=== PATIENT | female | born 1995 | race Caucasian/White ===

== ENCOUNTER 2020-12-11 00:04 | Emergency (ER) | payer MEDICAID, SELFPAY ==
--- NOTE | 2020-12-11 00:44 | ED_ITS ---
HPI - Nausea/Vomiting/Diarrhea General Chief complaint: Nausea/Vomiting/Diarrhea <Romie Taylor MD - Last Filed: 12/11/20 00:55> Stated complaint: vomiting (has HG)/ 24 wks preg <Romie Taylor MD - Last Filed: 12/11/20 00:55> Time Seen by Provider: 12/11/20 00:44 <Romie Taylor MD - Last Filed: 12/11/20 00:55> Source: patient <Romie Taylor MD - Last Filed: 12/11/20 00:55> Mode of arrival: ambulatory <Romie Taylor MD - Last Filed: 12/11/20 00:55> Limitations: no limitations <Romie Taylor MD - Last Filed: 12/11/20 00:55> History of Present Illness HPI Narrative: Patient is 24 weeks has a history of hyperemisis with prior pregnancies. This is her third . <Romie Taylor MD - Last Filed: 12/11/20 00:55> MD elicited complaint: nausea and vomiting <Romie Taylor MD - Last Filed: 12/11/20 00:55> Onset (ago): day(s) <Romie Taylor MD - Last Filed: 12/11/20 00:55> Severity: moderate <Romie Taylor MD - Last Filed: 12/11/20 00:55> Related Data Home medications: Previous Rx's Medication Instructions Recorded ondansetron 4 mg PO Q6-8H PRN #20 tab 12/11/20 <Romie Taylor MD - Last Filed: 12/11/20 00:55> Allergies/Adverse reactions: Allergies Allergy/AdvReac Type Severity Reaction Status Date / Time No Known Allergies Allergy Unverified 02/07/20 16:12 [No Known Allergies*] <Romie Taylor MD - Last Filed: 12/11/20 00:55> Review of Systems Constitutional: Constitutional: Reports no additional constitutional complaints <Romie Taylor MD - Last Filed: 12/11/20 00:55> Eyes: Eyes: Reports no additional eye complaints <Romie Taylor MD - Last Filed: 12/11/20 00:55> ENT: Denies dizziness <Romie Taylor MD - Last Filed: 12/11/20 00:55> Cardiovascular: Cardiovascular: Reports no additional cardiovascular complaints <Romie Taylor MD - Last Filed: 12/11/20 00:55> Respiratory: Respiratory: Reports as per HPI <Romie Taylor MD - Last Filed: 12/11/20 00:55> Gastrointestinal: Gastrointestinal: Reports no additional gastrointestinal complaints <Romie Taylor MD - Last Filed: 12/11/20 00:55> Genitourinary: Genitourinary: Reports no additional female genitourinary complaints <Romie Taylor MD - Last Filed: 12/11/20 00:55> Musculoskeletal: Musculoskeletal: Reports no additional musculoskeletal complaints <Romie Taylor MD - Last Filed: 12/11/20 00:55> Integumentary/Breasts: Skin/Breast: Denies rash <Romie Taylor MD - Last Filed: 12/11/20 00:55> Neurologic: Reports system reviewed and no additional complaints, except as documented, Denies dizziness and Denies Sensory deficit (Neuro) <Romie Taylor MD - Last Filed: 12/11/20 00:55> Psychiatric: Psychiatric: Denies anxiety <Romie Taylor MD - Last Filed: 12/11/20 00:55> [facility] Social History Social History: Social History Alcohol intake: never Patient Tobacco Use Status: Never used Tobacco Use of substances other than those prescribed or required for medical reasons: No Advance Directives: No Advance Directives Information Provided: Yes Patient : Yes <Romie Taylor MD - Last Filed: 12/11/20 00:55> Physical Exam Vital Signs: Vital Signs: Last Vital Signs Temp 99.0 F 12/11/20 00:45 Pulse 95 12/11/20 00:45 Resp 18 12/11/20 04:00 BP 130/66 12/11/20 00:45 Pulse Ox 98 12/11/20 00:45 Body Mass Index 38.1 <Romie Taylor MD - Last Filed: 12/11/20 00:55> Vital Signs: Last Vital Signs Temp 99.0 F 12/11/20 00:45 Pulse 95 12/11/20 00:45 Resp 18 12/11/20 04:00 BP 130/66 12/11/20 00:45 Pulse Ox 98 12/11/20 00:45 Body Mass Index 38.1 <Ethan Wagner MD - Last Filed: 12/11/20 06:16> Const: Other: patient dry heaving into a bucket <Romie Taylor MD - Last Filed: 12/11/20 00:55> Nutritional Appearance: average body habitus <Romie Taylor MD - Last Filed: 12/11/20 00:55> Orientation/consciousness: oriented to person and patient oriented x3 <Romie Taylor MD - Last Filed: 12/11/20 00:55> Limitations: no limitations <Romie Taylor MD - Last Filed: 12/11/20 00:55> HENMT: Head: Yes normal to inspection <Romie Taylor MD - Last Filed: 12/11/20 00:55> Ears: external ears normal <Romie Taylor MD - Last Filed: 12/11/20 00:55> General nose exam: Normal external nose present <Romie Taylor MD - Last Filed: 12/11/20 00:55> Mouth: Normal oral and palatal mucosa present and oropharynx normal <Romie Taylor MD - Last Filed: 12/11/20 00:55> Throat: Yes posterior oropharynx normal <Romie Taylor MD - Last Filed: 12/11/20 00:55> Eyes: General: appearance normal, both eyes and all related structures <Romie Taylor MD - Last Filed: 12/11/20 00:55> Neck: Other: supple <Romie Taylor MD - Last Filed: 12/11/20 00:55> Neck: Yes normal visual inspection <Romie Taylor MD - Last Filed: 12/11/20 00:55> Chest: Chest palpation & inspection: normal inspection of the chest <Romie Taylor MD - Last Filed: 12/11/20 00:55> Resp: Auscultation: clear to auscultation bilaterally <Romie Taylor MD - Last Filed: 12/11/20 00:55> Cardio: Jugular venous distension: no JVD <Romie Taylor MD - Last Filed: 12/11/20 00:55> Rate: regular rate <Romie Taylor MD - Last Filed: 12/11/20 00:55> Rhythm: regular rhythm <Romie Taylor MD - Last Filed: 12/11/20 00:55> Heart sounds: S1 normal heart sound present and S2 normal heart sound present <Romie Taylor MD - Last Filed: 12/11/20 00:55> GI: Other: gravid abdomen nontender <Romie Taylor MD - Last Filed: 11/21 07/13 00:55> Inspection: Yes normal to inspection <Romie Taylor MD - Last Filed: 12/11/20 00:55> Palpation (GI): Soft to palpation, nontender and No hepatosplenomegaly present <Romie Taylor MD - Last Filed: 12/11/20 00:55> Auscultation: normal bowel sounds <Romie Taylor MD - Last Filed: 12/11/20 00:55> : General: Yes no CVA tenderness <Romie Taylor MD - Last Filed: 12/11/20 00:55> Back/Spine/Pelvis: Back: no CVA tenderness <Romie Taylro MD - Last Filed: 12/11/20 00:55> Skin: General skin exam: no rashes or lesions noted <Romie Taylor MD - Last Filed: 12/11/20 00:55> Neuro: General: oriented to person and patient oriented x3 <Romie Taylor MD - Last Filed: 12/11/20 00:55> Cranial nerves: Yes CN's II-XII intact bilaterally <Romie Taylor MD - Last Filed: 12/11/20 00:55> Motor exam (neuro): 5/5 motor strength present throughout <Romie Taylor MD - Last Filed: 12/11/20 00:55> Sensory Exam: No Sensory deficit (Neuro) <Romie Taylor MD - Last Filed: 12/11/20 00:55> Extrem: General: Yes normal to inspection <Romie Taylor MD - Last Filed: 12/11/20 00:55> Psych: Appearance: grossly normal <Romie Taylor MD - Last Filed: 12/11/20 00:55> Course Reevaluation(s) Reevaluation #1: unofficial bedside ultrasound shows IUP with good FH. <Romie Taylor MD - Last Filed: 12/11/20 00:55> MDM - Nausea/Vomiting/Diarrhea MDM Narrative Medical decision making narrative: Patient received 3 L of IV fluid feeling much better now, received 2 doses of Zofran will discharge patient home <Ethan Wagner MD - Last Filed: 12/11/20 06:16> Lab Data Attestation: I reviewed the patient's lab results. <Ethan Wagner MD - Last Filed: 12/11/20 06:16> Result diagrams: : 12/11/20 01:03 12/11/20 01:03 <Romie Taylor MD - Last Filed: 12/11/20 00:55> Labs: Lab Results 12/11/20 12/11/20 12/11/20 Range/Units 01:03 01:03 05:45 WBC 20.6 H (4.8-10.8) X10*3/uL RBC 4.21 (4.20-5.50) X10*6/uL Hgb 12.5 (12.0-16.0) g/dl Hct 37.9 (37-47) % MCV 90.0 (80-98) fL MCH 29.7 (27.0-33.0) pg MCHC 33.0 (31.0-35.0) g/dl RDW 13.2 (11.0-16.0) % Plt Count 296 (160-400) X10*3/uL MPV 10.5 (9.4-12.3) fL Immature Gran % (Auto) 0.6 H (0.0-0.4) % Neut % (Auto) 88.9 H (45-73) % Lymph % (Auto) 6.9 L (20-40) % [place] % (Auto) 3.4 (2-11) % Eos % (Auto) 0.0 (0-4) % Baso % (Auto) 0.2 (0-2) % Lymph # (Auto) 1.4 (1.2-4.9) X10*3/uL [place] # (Auto) 0.7 (0.1-1.2) X10*3/uL Eos # (Auto) 0.0 (0.0-0.4) X10*3/uL Baso # (Auto) 0.0 (0.0-0.2) X10*3/uL Abs Immat Gran (auto) 0.13 H (0.00-0.03) X10*3/uL Absolute Neuts (auto) 18.3 H (2.0-8.3) X10*3/uL Absolute Nucleated RBC 0.000 (0.0-0.012) X10*3/uL Nucleated RBC % (auto) 0.0 (0.0-0.2) /100WBC Sodium 140 (135-145) mmol/L Potassium 3.2 L (3.3-5.1) mmol/L Chloride 99 (96-108) mmol/L Carbon Dioxide 26 (22-29) mmol/L Anion Gap 18 (12-20) BUN 7 L (9-16) mg/dL Creatinine 0.67 (0.5-1.4) mg/dL Estim Creat Clear Calc 119.9 Estimated GFR > 60 Random Glucose 129 H (60-115) mg/dL Calcium 9.3 (8.4-10.2) mg/dL Beta HCG, Quant 7717 mIU/mL Urine Color DARK YELLOW Urine Appearance HAZY Urine pH 7.0 (5.0-8.0) Ur Specific [place] 1.015 (1.005-1.025) Urine Protein TRACE (NEG-TRACE) MG/DL Urine Glucose (UA) NEG (NEG) MG/DL Urine Ketones >=80 (NEG) MG/DL Urine Blood NEG (NEG) Urine Nitrite NEG (NEG) Ur Leukocyte Esterase NEG (NEG) <Romie Taylor MD - Last Filed: 12/11/20 00:55> Lab Results 12/11/20 12/11/20 12/11/20 Range/Units 01:03 01:03 05:45 WBC 20.6 H (4.8-10.8) X10*3/uL RBC 4.21 (4.20-5.50) X10*6/uL Hgb 12.5 (12.0-16.0) g/dl Hct 37.9 (37-47) % MCV 90.0 (80-98) fL MCH 29.7 (27.0-33.0) pg MCHC 33.0 (31.0-35.0) g/dl RDW 13.2 (11.0-16.0) % Plt Count 296 (160-400) X10*3/uL MPV 10.5 (9.4-12.3) fL Immature Gran % (Auto) 0.6 H (0.0-0.4) % Neut % (Auto) 88.9 H (45-73) % Lymph % (Auto) 6.9 L (20-40) % [place] % (Auto) 3.4 (2-11) % Eos % (Auto) 0.0 (0-4) % Baso % (Auto) 0.2 (0-2) % Lymph # (Auto) 1.4 (1.2-4.9) X10*3/uL [place] # (Auto) 0.7 (0.1-1.2) X10*3/uL Eos # (Auto) 0.0 (0.0-0.4) X10*3/uL Baso # (Auto) 0.0 (0.0-0.2) X10*3/uL Abs Immat Gran (auto) 0.13 H (0.00-0.03) X10*3/uL Absolute Neuts (auto) 18.3 H (2.0-8.3) X10*3/uL Absolute Nucleated RBC 0.000 (0.0-0.012) X10*3/uL Nucleated RBC % (auto) 0.0 (0.0-0.2) /100WBC Sodium 140 (135-145) mmol/L Potassium 3.2 L (3.3-5.1) mmol/L Chloride 99 (96-108) mmol/L Carbon Dioxide 26 (22-29) mmol/L Anion Gap 18 (12-20) BUN 7 L (9-16) mg/dL Creatinine 0.67 (0.5-1.4) mg/dL Estim Creat Clear Calc 119.9 Estimated GFR > 60 Random Glucose 129 H (60-115) mg/dL Calcium 9.3 (8.4-10.2) mg/dL Beta HCG, Quant 7717 mIU/mL Urine Color DARK YELLOW Urine Appearance HAZY Urine pH 7.0 (5.0-8.0) Ur Specific [place] 1.015 (1.005-1.025) Urine Protein TRACE (NEG-TRACE) MG/DL Urine Glucose (UA) NEG (NEG) MG/DL Urine Ketones >=80 (NEG) MG/DL Urine Blood NEG (NEG) Urine Nitrite NEG (NEG) Ur Leukocyte Esterase NEG (NEG) <Ethan Wagner MD - Last Filed: 12/11/20 06:16> Discharge Plan Discharge Clinical Impression: Hyperemesis gravidarum <Romie Taylor MD - Last Filed: 12/11/20 00:55> Patient Disposition: Home, Self-Care <Romie Taylor MD - Last Filed: 12/11/20 00:55> Instructions: Hyperemesis Gravidarum (ED) <Romie Taylor MD - Last Filed: 12/11/20 00:55> Additional Instructions: Drink plenty of fluids Take nausea medication as advised for severe nausea or vomiting <Romie Taylor MD - Last Filed: 12/11/20 00:55> Prescriptions: New ondansetron 4 mg tablet,disintegrating 4 mg PO Q6-8H PRN (Reason: Nausea And Vomiting) Qty: 20 RF: 0 <Romie Taylor MD - Last Filed: 12/11/20 00:55>
[2020-12-11 00:45] VITALS: BP 130/66; PULSE 95; RESP 18; TEMP 37.2; O2SAT 98; BMI 38.1
[2020-12-11 01:07] LABS: MANUAL DIFF FLAG NO
[2020-12-11] MEDS: 0.9 % Sodium Chloride 1,000 ML 999 ML IVCONT ×3 (01:07→04:40)
[2020-12-11] MEDS: ondansetron HCL 4 MG/2 ML VIAL IVPUSH ×2 (01:07→04:40)
[2020-12-11 01:20] LABS: Basophils Percent Auto 0.2 % (0-2); Hematocrit 37.9 % (37-47); Hemoglobin 12.5 g/dl (12.0-16.0); Imm Gran Abs Auto 0.13 X10*3/uL (0.00-0.03); Imm Gran Pct Auto 0.6 % (0.0-0.4); Lymphocytes Absolute Auto 1.4 X10*3/uL (1.2-4.9); Lymphocytes Percent Auto 6.9 % (20-40); Mean Corpuscular Hemoglobin 29.7 pg (27.0-33.0); Mean Platelet Volume 10.5 fL (9.4-12.3); Monocytes Absolute Auto 0.7 X10*3/uL (0.1-1.2); Monocytes Percent Auto 3.4 % (2-11); Neutrophils Absolute Auto 18.3 X10*3/uL (2.0-8.3); Neutrophils Percent Auto 88.9 % (45-73); Platelet Count 296 X10*3/uL (160-400); Red Blood Count 4.21 X10*6/uL (4.20-5.50); Red Cell Distribution Width 13.2 % (11.0-16.0); White Blood Count 20.6 X10*3/uL (4.8-10.8)
[2020-12-11 01:23] VITALS: RESP 18
[2020-12-11 01:35] LABS: Anion Gap 18 (12-20); Blood Urea Nitrogen 7 mg/dL (9-16); Calcium 9.3 mg/dL (8.4-10.2); Carbon Dioxide 26 mmol/L (22-29); Chloride 99 mmol/L (96-108); Creatinine Clr Calc Pharmacy 119.9; Estimated Glomerular Filt Rate > 60; Glucose Random 129 mg/dL (60-115); Potassium 3.2 mmol/L (3.3-5.1); Sodium 140 mmol/L (135-145)
[2020-12-11 01:42] LABS: HCG Quantitative 7717 mIU/mL
[2020-12-11 04:00] VITALS: RESP 18
[2020-12-11 05:50] LABS: Glucose Urine UA NEG (NEG); Leukocyte Esterase Urine NEG (NEG); Nitrite Urine NEG (NEG); Specific Gravity - Urine 1.015 (1.005-1.025); Urine Blood NEG (NEG); Urine Ketones >=80 MG/DL (NEG); Urine Protein TRACE MG/DL (NEG-TRACE)
[2020-12-11 05:51] LABS: Appearance Urine HAZY; Color Urine DARK YELLOW; UACC Culture Trigger NO
== END 2020-12-11 06:32 | disposition home or self-care (01) ==
PROVIDERS: Emergency Provider Emergency Medicine
DX: O21.0 Mild hyperemesis gravidarum (principal); Z3A.24 24 weeks gestation of pregnancy
CPT/HCPCS: 36415; 80048; 81003; 84702; 85025; 96361; 96374; 96376; 99284; J2405

== ENCOUNTER 2020-12-21 00:30 | Emergency (ER) | payer MEDICAID, SELFPAY ==
[2020-12-21 00:33] VITALS: BP 139/78; PULSE 106; RESP 16; O2SAT 99; BMI 38.3
[2020-12-21] MEDS: 0.9 % Sodium Chloride 1,000 ML 999 ML IV ×2 (00:59→01:37)
[2020-12-21 01:06] LABS: Basophils Percent Auto 0.2 % (0-2); Eosinophils Percent Auto 0.2 % (0-4); Hematocrit 36.7 % (37-47); Hemoglobin 12.1 g/dl (12.0-16.0); Imm Gran Abs Auto 0.06 X10*3/uL (0.00-0.03); Imm Gran Pct Auto 0.3 % (0.0-0.4); Lymphocytes Absolute Auto 1.7 X10*3/uL (1.2-4.9); Lymphocytes Percent Auto 9.4 % (20-40); MANUAL DIFF FLAG NO; Mean Corpuscular Hemoglobin 29.5 pg (27.0-33.0); Mean Corpuscular Volume 89.5 fL (80-98); Mean Platelet Volume 10.7 fL (9.4-12.3); Monocytes Absolute Auto 0.7 X10*3/uL (0.1-1.2); Monocytes Percent Auto 4.2 % (2-11); Neutrophils Absolute Auto 15.3 X10*3/uL (2.0-8.3); Neutrophils Percent Auto 85.7 % (45-73); Platelet Count 277 X10*3/uL (160-400); White Blood Count 17.8 X10*3/uL (4.8-10.8)
[2020-12-21 01:10] VITALS: BP 133/72; PULSE 90; RESP 22; O2SAT 100
--- NOTE | 2020-12-21 01:17 | ED_ITS ---
HPI - General Adult General Chief complaint: Nausea/Vomiting/Diarrhea Stated complaint: vomiting blood/ 25 wks preg Time Seen by Provider: 12/21/20 01:14 Source: patient Mode of arrival: ambulatory Limitations: no limitations History of Present Illness HPI narrative: 25-year-old female who presents emergency department for evaluation of nausea vomiting and hematemesis. The patient is AG 3 P 2, LMP 06/25/2020, EDC 04/01/2021 who is approximately 25 weeks by dates. The patient states she began vomiting yesterday morning at 3:00 a.m. has been vomiting all day. She states that she has not been able to eat or drink. She has also been vomiting blood. She states that blood is bright red describes the amount as moderate to large. She has not noted any blood clots in her emesis. She denies weakness, lightheadedness or dizziness. The patient was seen in the emergency department on 12/11/2020 with similar complaints. She was treated with 3 L of normal saline and Zofran. She was given a prescription for Zofran ODT but she states she never picked up this medication. Patient told me that she has not had any follow-up with OBGYN since finding out she was . She states that she was taking vitamins but stopped when she developed nausea and vomiting. She denied fever, chills, headache, abdominal pain, swelling or pain in her lower extremities. Related Data Previous Rx's Medication Instructions Recorded ondansetron 4 mg disintegrating 4 mg PO Q6-8H PRN #20 tab 12/11/20 tablet cimetidine 800 mg tablet 800 mg PO BID #60 tab 12/21/20 promethazine 25 mg rectal 25 mg SC Q6H PRN #24 supp 12/21/20 suppository Allergies Allergy/AdvReac Type Severity Reaction Status Date / Time metoclopramide [From Reglan] Allergy Anxiety Verified 12/21/20 00:33 Review of Systems Review of Systems: Yes all other systems are reviewed and are negative Neurologic: Reports Abnormal speech present [facility] Past Medical History Medical History (Updated 12/21/20 @ 03:03 by Pierre Morrissey MD) No known health problems Social History Social History Alcohol intake: former Patient Tobacco Use Status: Never used Tobacco Use of substances other than those prescribed or required for medical reasons: No Advance Directives: No Advance Directives Information Provided: No Patient : Yes Physical Exam Vital Signs: Vital Signs: Last Vital Signs Pulse 90 12/21/20 01:10 Resp 22 H 12/21/20 01:10 BP 133/72 12/21/20 01:10 Pulse Ox 100 12/21/20 01:10 Body Mass Index 38.3 Const: General: cooperative and healthy appearing Orientation/consciousnes s: oriented to person and oriented to place Limitations: no limitations HENMT: Head: Yes normal to inspection, Yes normocephalic and Yes atraumatic Ears: external ears normal General nose exam: Normal external nose present Face and sinus: Yes normal facial exam Mouth: Normal oral and palatal mucosa present Throat: Yes posterior oropharynx normal Eyes: Periorbital: periorbital findings normal Eyelids: Yes eyelids normal Conjunctivae: conjunctivae normal Sclerae: sclerae normal Corneas: corneas normal Pupils: Equal, round and reactive pupils present Direct Ophthalmoscopy: normal light reflex Neck: Neck: Yes full ROM, Yes no lymphadenopathy, Yes no meningeal signs, Yes trachea midline and Yes supple Chest: Chest palpation & inspection: normal inspection of the chest and normal palpation of entire chest wall Resp: Effort & Inspection: normal respiratory effort and able to speak in comp lete sentences Auscultation: clear to auscultation bilaterally Cardio: Rate: regular rate Rhythm: regular rhythm Heart sounds: S1 normal heart sound present, S2 normal heart sound present and no murmurs GI: Inspection: Yes normal to inspection Palpation (GI): Soft to palpation, nontender, no guarding, not rigid and Other GI palpation findings present (Gravid uterus) : General: Yes no CVA tenderness Back/Spine/Pelvis: Back: no CVA tenderness Cervical Spine: normal cervical lordosis Thoracic/Lumbar Spine: thoracic and lumbar spine normal to inspection Skin: Lesions: no lesions Rashes: no rashes Wounds: no wounds Neuro: General: oriented to person, oriented to place and no meningeal signs Cranial nerves: Yes CN's II-XII intact bilaterally and Yes Equal, round and reactive pupils present Speech: Abnormal speech present Motor exam (neuro): 5/5 motor strength present throughout Extrem: General: Yes normal to inspection and Yes full ROM Psych: Appearance: well kempt Mental Status: mental status grossly normal Speech and movement: Normal speech and movement present Affect: normal affect Attitude: cooperative Thought process: Normal thought process present Thought content: Normal thought content present Course Course Course Narrative: 25-year-old female G3, P2, 25 weeks who presents emergency department for evaluation of nausea, vomiting and hematemesis for approximately 22 hours. The patient denied headache, chest pain, abdominal pain. On initial presentation she was actively vomiting and given Zofran 4 mg IV with improvement of her symptoms. Laboratory evaluation was ordered patient was also ordered to get normal saline IV x2 L. 0254: The patient's laboratory evaluation did [place] [address], she has a elevation previously and this is most likely related to her emesis is not infectious process. The patient's H&H was normal at 12.1 and 36.7, unchanged from previous visit. Her hematemesis is most likely caused by a Dennise-Ferrari tear secondary to her retching. Her comprehensive metabolic panel revealed a slight elevation in glucose of 131 otherwise was unremarkable. Patient's lipase is elevated at 541 but this is that this is secondary to her vomiting and not caused by pancreatitis. Patient's urinalysis revealed ketones and trace protein, otherwise was unremarkable. Patient is feeling significantly better after receiving IV Zofran. Patient also received 2 L of normal saline IV. 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 I also prescribed Phenergan suppositories 25 mg, 1 per rectum every 8 hours as needed for nausea and vomiting in the event that the Zofran does not work for her nausea and vomiting. She also be started on cimetidine for GERD. She states that she is going to get care at [facility] and told her that she needs to contact the [facility] [place] on Tuesday and try to get in as soon as possible. Medical Decision Making Lab Data Result diagrams: 12/21/20 00:58 12/21/20 00:58 Labs: Lab Results 12/21/20 12/21/20 12/21/20 Range/Units 00:58 00:58 00:58 WBC 17.8 H (4.8-10.8) X10*3/uL RBC 4.10 L (4.20-5.50) X10*6/uL Hgb 12.1 (12.0-16.0) g/dl Hct 36.7 L (37-47) % MCV 89.5 (80-98) fL MCH 29.5 (27.0-33.0) pg MCHC 33.0 (31.0-35.0) g/dl RDW 13.0 (11.0-16.0) % Plt Count 277 (160-400) X10*3/uL MPV 10.7 (9.4-12.3) fL Immature Gran % (Auto) 0.3 (0.0-0.4) % Neut % (Auto) 85.7 H (45-73) % Lymph % (Auto) 9.4 L (20-40) % [place] % (Auto) 4.2 (2-11) % Eos % (Auto) 0.2 (0-4) % Baso % (Auto) 0.2 (0-2) % Lymph # (Auto) 1.7 (1.2-4.9) X10*3/uL [place] # (Auto) 0.7 (0.1-1.2) X10*3/uL Eos # (Auto) 0.0 (0.0-0.4) X10*3/uL Baso # (Auto) 0.0 (0.0-0.2) X10*3/uL Abs Immat Gran (auto) 0.06 H (0.00-0.03) X10*3/uL Absolute Neuts (auto) 15.3 H (2.0-8.3) X10*3/uL Absolute Nucleated RBC 0.000 (0.0-0.012) X10*3/uL Nucleated RBC % (auto) 0.0 (0.0-0.2) /100WBC Sodium 140 (135-145) mmol/L Potassium 3.7 (3.3-5.1) mmol/L Chloride 104 (96-108) mmol/L Carbon Dioxide 24 (22-29) mmol/L Anion Gap 16 (12-20) BUN 6 L (9-16) mg/dL Creatinine 0.67 (0.5-1.4) mg/dL Estim Creat Clear Calc 120.2 Estimated GFR > 60 Random Glucose 131 H (60-115) mg/dL Calcium 9.4 (8.4-10.2) mg/dL Total Bilirubin 0.8 (0.0-1.0) mg/dL Direct Bilirubin 0.3 (0.0-0.5) mg/dL AST 10 (5-31) U/L ALT 9 (0-31) U/L Alkaline Phosphatase 88 (39-117) U/L Total Protein 7.1 (6.5-8.0) g/dL Albumin 3.7 (3.5-5.0) g/dL Lipase 541 H (8-78) U/L Beta HCG, Quant 6760 mIU/mL COVID-19 ([facility]) Negative (Negative) COVID-19 Clin Com See Note Discharge Plan Discharge Clinical Impression: Hyperemesis arising during , GERD (gastroesophageal reflux disease), Hematemesis Patient Disposition: Home, Self-Care Instructions: Hyperemesis Gravidarum (ED) Additional Instructions: Your blood work was unremarkable. The blood in your vomit is most likely caused by a small tear in your esophagus from retching. Get the prescription for Zofran ODT filled and take it as prescribed. I am also prescribing Phenergan suppositories 25 mg, 1 per rectum every 6-8 hours as needed for nausea and vomiting. Take cimetidine 800 mg twice a day for 1 month. Follow-up with [facility] for care. You need to call them on Tuesday morning and get in as soon as possible. Please return to the emergency department if your symptoms get worse or if you d evelop any symptoms that are concerning to you. Prescriptions: New cimetidine 800 mg tablet 800 mg PO BID Qty: 60 RF: 0 promethazine 25 mg suppository 25 mg SC Q6H PRN (Reason: nausea and vomiting) Qty: 24 RF: 0 No Action ondansetron 4 mg tablet,disintegrating 4 mg PO Q6-8H PRN (Reason: Nausea And Vomiting) Qty: 20 RF: 0
[2020-12-21 01:22] LABS: COVID-19 Test Negative (Negative); IDNOW Serial# 9DD0AD1C
[2020-12-21 01:34] LABS: Alanine Aminotransferase 9 U/L (0-31); Albumin Level 3.7 g/dL (3.5-5.0); Alkaline Phosphatase 88 U/L (39-117); Anion Gap 16 (12-20); Aspartate Amino Transferase 10 U/L (5-31); Bilirubin Direct 0.3 mg/dL (0.0-0.5); Bilirubin Total 0.8 mg/dL (0.0-1.0); Blood Urea Nitrogen 6 mg/dL (9-16); Calcium 9.4 mg/dL (8.4-10.2); Carbon Dioxide 24 mmol/L (22-29); Chloride 104 mmol/L (96-108); Creatinine Clr Calc Pharmacy 120.2; Estimated Glomerular Filt Rate > 60; Glucose Random 131 mg/dL (60-115); Lipase 541 U/L (8-78); Potassium 3.7 mmol/L (3.3-5.1); Sodium 140 mmol/L (135-145); Total Protein 7.1 g/dL (6.5-8.0)
--- NOTE | 2020-12-21 01:37 | PC.NURSE ---
pt reports improvement in n/v s/p zofran
[2020-12-21 02:39] LABS: HCG Quantitative 6760 mIU/mL
[2020-12-21 02:56] VITALS: BP 109/55; PULSE 95; RESP 16; O2SAT 97
--- NOTE | 2020-12-21 02:57 | PC.NURSE ---
2nd liter continues to infuse. Pt reports mild nausea at this time I don't think it's to the point where I'm going to throw up. Dr Morrissey made aware
== END 2020-12-21 04:24 | disposition home or self-care (01) ==
PROVIDERS: Emergency Provider Emergency Medicine Emergency Medical Services
DX: O21.0 Mild hyperemesis gravidarum (principal); Z3A.25 25 weeks gestation of pregnancy; Z20.822 Contact with and (suspected) exposure to COVID-19
CPT/HCPCS: 36415; 80048; 80076; 83690; 84702; 85025; 87635; 96361; 96365; 96375; 99285; J2405; J2550

== ENCOUNTER 2020-12-31 13:27 | Emergency (ER) | payer MEDICAID, SELFPAY ==
[2020-12-31 13:47] VITALS: BP 108/70; PULSE 111; RESP 16; TEMP 37.2; O2SAT 96; BMI 38.3
[2020-12-31 14:32] LABS: MANUAL DIFF FLAG NO
[2020-12-31 14:35] LABS: Basophils Percent Auto 0.2 % (0-2); Eosinophils Percent Auto 0.1 % (0-4); Hematocrit 37.2 % (37-47); Imm Gran Pct Auto 0.5 % (0.0-0.4); Lymphocytes Absolute Auto 1.3 X10*3/uL (1.2-4.9); Lymphocytes Percent Auto 6.7 % (20-40); Mean Corpuscular HGB Conc 32.3 g/dl (31.0-35.0); Mean Corpuscular Hemoglobin 29.3 pg (27.0-33.0); Mean Corpuscular Volume 90.7 fL (80-98); Mean Platelet Volume 10.3 fL (9.4-12.3); Monocytes Absolute Auto 0.6 X10*3/uL (0.1-1.2); Monocytes Percent Auto 3.2 % (2-11); Neutrophils Absolute Auto 17.7 X10*3/uL (2.0-8.3); Neutrophils Percent Auto 89.3 % (45-73); Platelet Count 254 X10*3/uL (160-400); White Blood Count 19.8 X10*3/uL (4.8-10.8)
[2020-12-31 15:04] LABS: Anion Gap 13 (12-20); Blood Urea Nitrogen 7 mg/dL (9-16); Carbon Dioxide 24 mmol/L (22-29); Chloride 106 mmol/L (96-108); Creatinine Clr Calc Pharmacy 122.1; Estimated Glomerular Filt Rate > 60; Glucose Random 86 mg/dL (60-115); Potassium 4.2 mmol/L (3.3-5.1); Sodium 139 mmol/L (135-145)
--- NOTE | 2020-12-31 17:24 | ED.NAVMDI ---
HPI - Nausea/Vomiting/Diarrhea General Chief complaint: Nausea/Vomiting/Diarrhea Stated complaint: vomiting blood Time Seen by Provider: 12/31/20 17:24 Source: patient Mode of arrival: ambulatory Limitations: no limitations History of Present Illness HPI Narrative: patient started with nausea and vomiting at 2am. Was still vomiting at 12:30pm. Patient noticed some brown vomiting and was concerned that she was vomiting blood. In the past she has had some minor esophageal mucosal tears. patient is currently 27 weeks . Patient says [employer] works for her. MD elicited complaint: nausea, vomiting and diarrhea Pertinent past history: cyclical vomiting Description of vomiting: watery and blood-streaked Associated nausea: Yes Associated abdominal pain: Yes Associated symptoms: denies other symptoms Related Data Previous Rx's Medication Instructions Recorded ondansetron 4 mg disintegrating 4 mg PO Q6-8H PRN #20 tab 12/11/20 tablet cimetidine 800 mg tablet 800 mg PO BID #60 tab 12/21/20 promethazine 25 mg rectal 25 mg MA Q6H PRN #24 supp 12/21/20 suppository promethazine 25 mg tablet 25 mg PO TID PRN #20 tab 12/31/20 Allergies Allergy/AdvReac Type Severity Reaction Status Date / Time metoclopramide [From Reglan] Allergy Anxiety Verified 12/21/20 00:33 Review of Systems Constitutional: Constitutional: Reports no additional constitutional complaints Eyes: Eyes: Reports no additional eye complaints ENT: Denies dizziness Cardiovascular: Cardiovascular: Reports no additional cardiovascular complaints Respiratory: Respiratory: Reports as per HPI Gastrointestinal: Gastrointestinal: Reports nausea Genitourinary: Genitourinary: Reports no additional female genitourinary complaints Musculoskeletal: Musculoskeletal: Reports no additional musculoskeletal complaints Integumentary/Breasts: Skin/Breast: Denies rash Neurologic: Reports system reviewed and no additional complaints, except as documented, Denies dizziness and Denies Sensory deficit (Neuro) Psychiatric: Psychiatric: Denies anxiety PMFSH Past Medical History Medical History No known health problems Social History Social History Alcohol intake: never Patient Tobacco Use Status: Never used Tobacco Use of substances other than those prescribed or required for medical reasons: No Advance Directives: Yes Advance Directives Information Provided: Yes Advance Directives on File: No Patient : Yes Physical Exam Vital Signs: Vital Signs: Last Vital Signs Temp 99.3 F 12/31/20 20:00 Pulse 94 12/31/20 20:00 Resp 16 12/31/20 20:00 BP 141/69 H 12/31/20 20:00 Pulse Ox 99 12/31/20 20:00 Body Mass Index 38.3 Const: Other: comfortable appearing Nutritional Appearance: overweight Orientation/consciousness: oriented to person and patient oriented x3 Limitations: no limitations HENMT: Head: Yes normal to inspection Ears: external ears normal General nose exam: Normal external nose present Mouth: Normal oral and palatal mucosa present and oropharynx normal Throat: Yes posterior oropharynx normal Eyes: General: appearance normal, both eyes and all related structures Neck: Other: supple Neck: Yes normal visual inspection Chest: Chest palpation & inspection: normal inspection of the chest Resp: Auscultation: clear to auscultation bilaterally Cardio: Jugular venous distension: no JVD Rate: regular rate Rhythm: regular rhythm Heart sounds: S1 normal heart sound present and S2 normal heart sound present GI: Other: Gravid abdomen,non tender Inspection: Yes normal to inspection Auscultation: normal bowel sounds : General: Yes no CVA tenderness Back/Spine/Pelvis: Back: no CVA tenderness Skin: General skin exam: no rashes or lesions noted Neuro: General: oriented to person and patient oriented x3 Cranial nerves: Yes CN's II-XII intact bilaterally Motor exam (neuro): 5/5 motor strength present throughout Sensory Exam: No Sensory deficit (Neuro) Extrem: General: Yes normal to inspection Psych: Appearance: grossly normal Course Reevaluation(s) Reevaluation #1: patient just vomited will start IV fluids and IV phenergan Time: 18:32 Reevaluation #2: no further vomiting will dc home Time: 20:45 MDM - Nausea/Vomiting/Diarrhea Lab Data Result diagrams: 12/31/20 14:28 12/31/20 14:28 Labs: Lab Results 12/31/20 12/31/20 12/31/20 Range/Units 14:28 14:28 18:11 WBC 19.8 H (4.8-10.8) X10*3/uL RBC 4.10 L (4.20-5.50) X10*6/uL Hgb 12.0 (12.0-16.0) g/dl Hct 37.2 (37-47) % MCV 90.7 (80-98) fL MCH 29.3 (27.0-33.0) pg MCHC 32.3 (31.0-35.0) g/dl RDW 13.0 (11.0-16.0) % Plt Count 254 (160-400) X10*3/uL MPV 10.3 (9.4-12.3) fL Immature Gran % (Auto) 0.5 H (0.0-0.4) % Neut % (Auto) 89.3 H (45-73) % Lymph % (Auto) 6.7 L (20-40) % [place] % (Auto) 3.2 (2-11) % Eos % (Auto) 0.1 (0-4) % Baso % (Auto) 0.2 (0-2) % Lymph # (Auto) 1.3 (1.2-4.9) X10*3/uL [place] # (Auto) 0.6 (0.1-1.2) X10*3/uL Eos # (Auto) 0.0 (0.0-0.4) X10*3/uL Baso # (Auto) 0.0 (0.0-0.2) X10*3/uL Abs Immat Gran (auto) 0.10 H (0.00-0.03) X10*3/uL Absolute Neuts (auto) 17.7 H (2.0-8.3) X10*3/uL Absolute Nucleated RBC 0.000 (0.0-0.012) X10*3/uL Nucleated RBC % (auto) 0.0 (0.0-0.2) /100WBC Sodium 139 (135-145) mmol/L Potassium 4.2 (3.3-5.1) mmol/L Chloride 106 (96-108) mmol/L Carbon Dioxide 24 (22-29) mmol/L Anion Gap 13 (12-20) BUN 7 L (9-16) mg/dL Creatinine 0.66 (0.5-1.4) mg/dL Estim Creat Clear Calc 122.1 Estimated GFR > 60 Random Glucose 86 (60-115) mg/dL Calcium 9.0 (8.4-10.2) mg/dL Urine Color YELLOW Urine Appearance HAZY Urine pH 6.5 (5.0-8.0) Ur Specific [place] 1.025 (1.005-1.025) Urine Protein 1+ H (NEG-TRACE) MG/DL Urine Glucose (UA) NEG (NEG) MG/DL Urine Ketones >=80 (NEG) MG/DL Urine Blood NEG (NEG) Urine Nitrite NEG (NEG) Ur Leukocyte Esterase NEG (NEG) Urine RBC 0 (0) /HPF Urine WBC 0 (0-4) /HPF Ur Squamous Epith Cells 2+ /LPF Urine Bacteria 1+ /LPF Discharge Plan Discharge Clinical Impression: Hyperemesis Patient Disposition: Home, Self-Care Instructions: Acute Nausea and Vomiting (ED) Prescriptions: New promethazine 25 mg tablet 25 mg PO TID PRN (Reason: nausea and vomiting) Qty: 20 RF: 0 No Action ondansetron 4 mg tablet,disintegrating 4 mg PO Q6-8H PRN (Reason: Nausea And Vomiting) Qty: 20 RF: 0 cimetidine 800 mg tablet 800 mg PO BID Qty: 60 RF: 0 promethazine 25 mg suppository 25 mg MA Q6H PRN (Reason: nausea and vomiting) Qty: 24 RF: 0 Referrals: Joe Milan MD [Physician] - 1 week
[2020-12-31] MEDS: Promethazine HCL 25 MG TABLET PO (18:08)
[2020-12-31 18:28] LABS: Glucose Urine UA NEG (NEG); Leukocyte Esterase Urine NEG (NEG); Nitrite Urine NEG (NEG); PH 6.5 (5.0-8.0); Specific Gravity - Urine 1.025 (1.005-1.025); UACC Culture Trigger NO; Urine Blood NEG (NEG); Urine Ketones >=80 MG/DL (NEG); Urine Protein 1+ MG/DL (NEG-TRACE)
[2020-12-31 18:30] LABS: Appearance Urine HAZY; Color Urine YELLOW
[2020-12-31] MEDS: 0.9 % Sodium Chloride 1,000 ML 999 ML IVCONT ×2 (18:45→20:10)
[2020-12-31 18:52] VITALS: RESP 18
[2020-12-31 19:00] LABS: RBC Urine 0 /HPF (0); WBC Urine 0 /HPF (0-4)
[2020-12-31 19:01] LABS: Bacteria Urine 1+ /LPF; Squamous Epithelial Cell Urine 2+ /LPF
[2020-12-31 20:00] VITALS: BP 141/69; PULSE 94; RESP 16; TEMP 37.4; O2SAT 99
--- NOTE | 2020-12-31 21:42 | PC.NURSE ---
PT REPORTS TEMPORARY MARKED IMPROVEMENT IN SX, WHEN THIS RN WENT TO D/C PT SHE REQUESTED WAITING A LITTLE LONGER SHE FELT SX WERE RETURNING, PT NOW VOMITING MULTIPLE TIMES, PROVIDER AWARE.
[2020-12-31] MEDS: ondansetron HCL 4 MG/2 ML VIAL IVPUSH (21:48)
[2020-12-31 22:00] VITALS: BP 139/82; PULSE 84; RESP 16; TEMP 36.3; O2SAT 99
== END 2020-12-31 23:45 | disposition home or self-care (01) ==
PROVIDERS: Emergency Provider Emergency Medicine
DX: R11.2 Nausea with vomiting, unspecified (principal); Z79.899 Other long term (current) drug therapy
CPT/HCPCS: 36415; 80048; 81001; 85025; 96361; 96374; 96375; 99284; J2405; J2550

== ENCOUNTER 2021-01-06 10:17 | Emergency (ER) | payer MEDICAID, SELFPAY ==
--- NOTE | ~2021-01-06 | US_ITS ---
EXAMINATION: US ABDOMEN COMPLETE CLINICAL INFORMATION: , pain and vomiting. COMPARISON: Abdominal ultrasound examinations dated 04/06/2013 and 05/18/2013. TECHNIQUE: Real-time imaging of the abdominal viscera. FINDINGS: PANCREAS: Normal. ABDOMINAL AORTA: The proximal, mid, and distal segments are normal in caliber. INFERIOR VENA CAVA: Visualized portions are normal. LIVER: Normal. The liver is normal in size. The liver contour is normal. Parenchymal echogenicity is normal. No focal hepatic lesion. There is no intrahepatic biliary duct dilatation seen. GALLBLADDER: There are extensive shadowing, without polyps, sludge, wall thickening or pericholecystic fluid. COMMON BILE DUCT: Normal in caliber measuring 0.4 cm in diameter. RIGHT KIDNEY: Normal. No hydronephrosis. No renal calculi or focal parenchymal lesions. The kidney measures 10.7 cm in maximum dimension. LEFT KIDNEY: Normal. No hydronephrosis. No renal calculi or focal parenchymal lesions. The kidney measures 10.6 cm in maximum dimension. SPLEEN: Normal. The spleen measures 9.4 cm in maximum dimension. FREE FLUID: None. US/US abdomen complete IMPRESSION: There is marked cholelithiasis, without cholecystitis or choledocholithiasis seen.
[2021-01-06 10:55] VITALS: BP 131/76; PULSE 98; O2SAT 97; BMI 37.7
--- NOTE | 2021-01-06 11:17 | ED_ITS ---
HPI - Nausea/Vomiting/Diarrhea General Chief complaint: Nausea/Vomiting/Diarrhea Stated complaint: nausea vomiting Time Seen by Provider: 01/06/21 11:16 Source: patient Mode of arrival: ambulatory Limitations: no limitations History of Present Illness HPI Narrative: Patient here for vomiting. Patient has not had any care no ultrasound for this . This is worse than her second . No spotting. MD elicited complaint: nausea and vomiting Pertinent past history: cyclical vomiting Onset (ago): month(s) Description of vomiting: watery Associated nausea: Yes Location of pain: diffuse Severity: mild Quality: aching Exacerbating factors: eating Relieving factors: none Related Data Previous Rx's Medication Instructions Recorded ondansetron 4 mg disintegrating 4 mg PO Q6-8H PRN #20 tab 12/11/20 tablet cimetidine 800 mg tablet 800 mg PO BID #60 tab 12/21/20 promethazine 25 mg rectal 25 mg AL Q6H PRN #24 supp 12/21/20 suppository promethazine 25 mg tablet 25 mg PO TID PRN #20 tab 12/31/20 ondansetron HCl 4 mg tablet 4 mg PO Q8H PRN #30 tab 01/06/21 (Zofran) Allergies Allergy/AdvReac Type Severity Reaction Status Date / Time metoclopramide [From Reglan] Allergy Anxiety Verified 12/21/20 00:33 Review of Systems Constitutional: Constitutional: Reports no additional constitutional complaints Eyes: Eyes: Reports no additional eye complaints ENT: Denies dizziness Cardiovascular: Cardiovascular: Reports no additional cardiovascular complaints Respiratory: Respiratory: Reports as per HPI Gastrointestinal: Gastrointestinal: Reports nausea Genitourinary: Genitourinary: Reports no additional female genitourinary complaints Musculoskeletal: Musculoskeletal: Reports no additional musculoskeletal complaints Integumentary/Breasts: Skin/Breast: Denies rash Neurologic: Reports system reviewed and no additional complaints, except as documented, Denies dizziness and Denies Sensory deficit (Neuro) Psychiatric: Psychiatric: Denies anxiety PMF Past Medical History Medical History No known health problems Social History Social History Alcohol intake: never Patient Tobacco Use Status: Never used Tobacco Use of substances other than those prescribed or required for medical reasons: No Advance Directives: No Advance Directives Information Provided: No Patient : Yes Physical Exam Vital Signs: Vital Signs: Last Vital Signs Temp 98.6 F 01/06/21 12:51 Pulse 94 01/06/21 19:16 Resp 16 01/06/21 19:16 BP 123/62 01/06/21 19:16 Pulse Ox 98 01/06/21 19:16 Body Mass Index 37.7 Neuro: Sensory Exam: No Sensory deficit (Neuro) Course Reevaluation(s) Reevaluation #1: still vomiting Time: 14:49 Reevaluation #2: feeling slightly better, will give phenergan, bedside Us showed normal FH Time: 16:43 Reevaluation #3: will dc patient home as she improved Time: 20:51 MDM - Nausea/Vomiting/Diarrhea Lab Data Result diagrams: 01/06/21 11:57 01/06/21 11:57 Labs: Lab Results 01/06/21 01/06/21 01/06/21 Range/Units 11:57 11:57 14:12 WBC 19.0 H (4.8-10.8) X10*3/uL RBC 3.94 L (4.20-5.50) X10*6/uL Hgb 11.7 L (12.0-16.0) g/dl Hct 35.5 L (37-47) % MCV 90.1 (80-98) fL MCH 29.7 (27.0-33.0) pg MCHC 33.0 (31.0-35.0) g/dl RDW 13.1 (11.0-16.0) % Plt Count 269 (160-400) X10*3/uL MPV 10.2 (9.4-12.3) fL Immature Gran % (Auto) 0.6 H (0.0-0.4) % Neut % (Auto) 88.3 H (45-73) % Lymph % (Auto) 7.0 L (20-40) % [place] % (Auto) 4.0 (2-11) % Eos % (Auto) 0.0 (0-4) % Baso % (Auto) 0.1 (0-2) % Lymph # (Auto) 1.3 (1.2-4.9) X10*3/uL [place] # (Auto) 0.8 (0.1-1.2) X10*3/uL Eos # (Auto) 0.0 (0.0-0.4) X10*3/uL Baso # (Auto) 0.0 (0.0-0.2) X10*3/uL Abs Immat Gran (auto) 0.11 H (0.00-0.03) X10*3/uL Absolute Neuts (auto) 16.8 H (2.0-8.3) X10*3/uL Absolute Nucleated RBC 0.000 (0.0-0.012) X10*3/uL Nucleated RBC % (auto) 0.0 (0.0-0.2) /100WBC Sodium 140 (135-145) mmol/L Potassium 3.3 D (3.3-5.1) mmol/L Chloride 101 (96-108) mmol/L Carbon Dioxide 27 (22-29) mmol/L Anion Gap 15 (12-20) BUN 4 L (9-16) mg/dL Creatinine 0.60 (0.5-1.4) mg/dL Estim Creat Clear Calc 134.2 Estimated GFR > 60 Random Glucose 93 (60-115) mg/dL Calcium 8.8 (8.4-10.2) mg/dL Urine Color YELLOW Urine Appearance CLEAR Urine pH 7.0 (5.0-8.0) Ur Specific [place] 1.020 (1.005-1.025) Urine Protein 1+ H (NEG-TRACE) MG/DL Urine Glucose (UA) NEG (NEG) MG/DL Urine Ketones >=80 (NEG) MG/DL Urine Blood NEG (NEG) Urine Nitrite NEG (NEG) Ur Leukocyte Esterase NEG (NEG) Urine RBC 0-2 (0) /HPF Urine WBC 0-2 (0-4) /HPF Ur Squamous Epith Cells 3+ /LPF Urine Bacteria TRACE /LPF Discharge Plan Discharge Clinical Impression: Hyperemesis, Gallstones Patient Disposition: Home, Self-Care Instructions: Gallstones (ED), Acute Nausea and Vomiting (ED) Prescriptions: New ondansetron HCl [Zofran] 4 mg tablet 4 mg PO Q8H PRN (Reason: nausea and vomiting) Qty: 30 RF: 0 No Action ondansetron 4 mg tablet,disintegrating 4 mg PO Q6-8H PRN (Reason: Nausea And Vomiting) Qty: 20 RF: 0 promethazine 25 mg tablet 25 mg PO TID PRN (Reason: nausea and vomiting) Qty: 20 RF: 0 cimetidine 800 mg tablet 800 mg PO BID Qty: 60 RF: 0 promethazine 25 mg suppository 25 mg AL Q6H PRN (Reason: nausea and vomiting) Qty: 24 RF: 0 Referrals: Physician,None [Primary Care Provider] - 3 days
[2021-01-06 12:00] LABS: MANUAL DIFF FLAG NO
[2021-01-06 12:04] LABS: Basophils Percent Auto 0.1 % (0-2); Hematocrit 35.5 % (37-47); Hemoglobin 11.7 g/dl (12.0-16.0); Imm Gran Abs Auto 0.11 X10*3/uL (0.00-0.03); Imm Gran Pct Auto 0.6 % (0.0-0.4); Lymphocytes Absolute Auto 1.3 X10*3/uL (1.2-4.9); Mean Corpuscular Hemoglobin 29.7 pg (27.0-33.0); Mean Corpuscular Volume 90.1 fL (80-98); Mean Platelet Volume 10.2 fL (9.4-12.3); Monocytes Absolute Auto 0.8 X10*3/uL (0.1-1.2); Neutrophils Absolute Auto 16.8 X10*3/uL (2.0-8.3); Neutrophils Percent Auto 88.3 % (45-73); Platelet Count 269 X10*3/uL (160-400); Red Blood Count 3.94 X10*6/uL (4.20-5.50); Red Cell Distribution Width 13.1 % (11.0-16.0)
[2021-01-06] MEDS: 0.9 % Sodium Chloride 1,000 ML 999 ML IVCONT ×4 (12:12→19:43)
[2021-01-06] MEDS: ondansetron HCL 4 MG/2 ML VIAL IVPUSH ×2 (12:15→15:30)
[2021-01-06 12:33] LABS: Anion Gap 15 (12-20); Blood Urea Nitrogen 4 mg/dL (9-16); Calcium 8.8 mg/dL (8.4-10.2); Carbon Dioxide 27 mmol/L (22-29); Chloride 101 mmol/L (96-108); Creatinine Clr Calc Pharmacy 134.2; Estimated Glomerular Filt Rate > 60; Glucose Random 93 mg/dL (60-115); Potassium 3.3 mmol/L (3.3-5.1); Sodium 140 mmol/L (135-145)
[2021-01-06 12:51] VITALS: BP 129/71; PULSE 81; RESP 18; TEMP 37; O2SAT 99
[2021-01-06 14:24] LABS: Glucose Urine UA NEG (NEG); Leukocyte Esterase Urine NEG (NEG); Nitrite Urine NEG (NEG); UACC Culture Trigger NO; Urine Blood NEG (NEG); Urine Ketones >=80 MG/DL (NEG); Urine Protein 1+ MG/DL (NEG-TRACE)
[2021-01-06 14:27] LABS: Appearance Urine CLEAR; Color Urine YELLOW
[2021-01-06 14:44] LABS: Bacteria Urine TRACE /LPF; RBC Urine 0-2 /HPF (0); Squamous Epithelial Cell Urine 3+ /LPF; WBC Urine 0-2 /HPF (0-4)
[2021-01-06 15:31] VITALS: RESP 18; O2SAT 99
[2021-01-06 19:10] VITALS: BP 102/40; PULSE 98; RESP 18; O2SAT 98
[2021-01-06 19:16] VITALS: BP 123/62; PULSE 94; RESP 16; O2SAT 98
== END 2021-01-06 21:37 | disposition home or self-care (01) ==
PROVIDERS: Emergency Provider Emergency Medicine
DX: O21.0 Mild hyperemesis gravidarum (principal); O99.619 Diseases of the digestive system complicating pregnancy, unspecified trimester; K80.50 Calculus of bile duct without cholangitis or cholecystitis without obstruction; Z3A.00 Weeks of gestation of pregnancy not specified
CPT/HCPCS: 36415; 76700; 80048; 81001; 85025; 96361; 96374; 96375; 96376; 99284; 99285; J2405; J2550

== ENCOUNTER 2021-01-12 17:47 | Emergency (ER) | payer MEDICAID, SELFPAY | END 2021-01-12 19:32 | disposition left against medical advice (07) | PROVIDERS: Emergency Provider Emergency Medicine | DX: K92.0 Hematemesis (principal) ==

== ENCOUNTER 2021-01-13 01:38 | Emergency (ER) | payer MEDICAID, SELFPAY ==
[2021-01-13 01:48] VITALS: BP 142/51; PULSE 78; RESP 16; TEMP 36.8; O2SAT 97; BMI 38.3
[2021-01-13] MEDS: 0.9 % Sodium Chloride 1,000 ML 999 ML IVCONT ×2 (02:15→03:12)
[2021-01-13 02:20] LABS: MANUAL DIFF FLAG NO
[2021-01-13 02:22] LABS: Basophils Percent Auto 0.1 % (0-2); Hematocrit 35.3 % (37-47); Hemoglobin 11.5 g/dl (12.0-16.0); Imm Gran Pct Auto 0.5 % (0.0-0.4); Lymphocytes Absolute Auto 1.4 X10*3/uL (1.2-4.9); Lymphocytes Percent Auto 7.1 % (20-40); Mean Corpuscular HGB Conc 32.6 g/dl (31.0-35.0); Mean Corpuscular Hemoglobin 29.1 pg (27.0-33.0); Mean Corpuscular Volume 89.4 fL (80-98); Mean Platelet Volume 10.9 fL (9.4-12.3); Monocytes Absolute Auto 0.8 X10*3/uL (0.1-1.2); Monocytes Percent Auto 4.2 % (2-11); Neutrophils Absolute Auto 17.2 X10*3/uL (2.0-8.3); Neutrophils Percent Auto 88.1 % (45-73); Platelet Count 266 X10*3/uL (160-400); Red Blood Count 3.95 X10*6/uL (4.20-5.50); White Blood Count 19.6 X10*3/uL (4.8-10.8)
[2021-01-13 02:30] LABS: GASOB Int Neg Ctl Valid YES; GASOB Int Pos Ctl Valid YES; Occult Blood Gastric POS (NEG)
--- NOTE | 2021-01-13 02:46 | ED_ITS ---
HPI - Nausea/Vomiting/Diarrhea General Chief complaint: Nausea/Vomiting/Diarrhea Stated complaint: Vomiting Blood Time Seen by Provider: 01/13/21 01:41 Source: patient Mode of arrival: ambulatory Limitations: no limitations History of Present Illness HPI Narrative: Patient comes to the emergency room complaining of vomiting. Patient is , states he has had hyperemesis throughout her . She is a . Patient states that this time she is vomiting blood, it has happened in the past, states that she has had mucosal tears due to vomiting. Patient denies any significant chest pain. Patient complaining of reflux sensation, burning sensation in her esophagus but no pain. Patient denies abdominal pain, no contractions, no vaginal bleeding or fluid leakage. Patient states she has Phenergan at home which usually works very well but only IV, patient has tried the suppositories prior to arrival, Zofran, did not get good results at home. Related Data Previous Rx's Medication Instructions Recorded ondansetron 4 mg disintegrating 4 mg PO Q6-8H PRN #20 tab 12/11/20 tablet cimetidine 800 mg tablet 800 mg PO BID #60 tab 12/21/20 promethazine 25 mg rectal 25 mg IA Q6H PRN #24 supp 12/21/20 suppository promethazine 25 mg tablet 25 mg PO TID PRN #20 tab 12/31/20 ondansetron HCl 4 mg tablet 4 mg PO Q8H PRN #30 tab 01/06/21 (Zofran) Allergies Allergy/AdvReac Type Severity Reaction Status Date / Time metoclopramide [From Reglan] Allergy Anxiety Verified 01/13/21 01:47 Review of Systems Review of Systems: Constitutional : No Weight loss, No Fever, No Chills, No Night Sweats, No Fatigue, No Malaise ENT/Mouth : No Hearing loss, No Ear Pain, No Nasal Congestion, No Sinus Pain, No Hoarseness, No sore throat, No Rhinorrhea, No Swallowing Difficulty Eyes: No Eye Pain, No Swelling, No Redness, No Foreign Body, No Discharge, No Vision Changes Cardiovascular : No Chest Pain, No SOB, No Dyspnea on Exertion, No Orthopnea, No Edema, No Palpitations Respiratory : No Cough, No Sputum, No Wheezing, No Smoke Exposure, No Dyspnea Gastrointestinal : Laying of nausea and vomiting, No Diarrhea, No Constipation, No abdominal Pain, No Hematochezia, No Melena Genitourinary : no irregular bleeding, No Dysuria, No Urinary Frequency, No Hematuria, No Urinary Incontinence, No Urgency, No Flank Pain, No Urinary Flow Changes, No Hesitancy Musculoskeletal : No joint pain, No Myalgias, No Joint Swelling Skin : No Skin Lesions, No rash Neuro : No Weakness, No Numbness, No Paresthesias, No Loss of Consciousness, No Dizziness, No Headache Psych : No Anxiety/Panic, No Depression, No SI/HI/AH/VH, No Social Issues, Heme/Lymph: No Bruising, No Bleeding,No Lymphadenopathy Endocrine : No Polyuria, No Polydipsia, No Temperature Intolerance PMF Past Medical History Medical History (Updated 01/13/21 @ 06:01 by Suze Harris MD) Hyperemesis No known health problems Social History Social History Alcohol intake: never Patient Tobacco Use Status: Never used Tobacco Advance Directives: No Advance Directives Information Provided: No Patient : Yes Physical Exam Vital Signs: Vital Signs: Last Vital Signs Temp 98.3 F 01/13/21 01:48 Pulse 86 01/13/21 04:42 Resp 16 01/13/21 01:48 BP 138/68 01/13/21 04:42 Pulse Ox 98 01/13/21 04:42 Body Mass Index 38.3 Const: Other: Appearance: Alert. Oriented X3. No acute distress. Eyes: Pupils equal, round and reactive to light. ENT: Pharynx normal. Neck: Normal inspection. Neck supple. No lymph nodes noted. No crepitus CVS: Normal heart rate and rhythm. Pulses normal. Normal S1 and S2, no crepitus, mild systolic murmur Respiratory: No respiratory distress. Breath sounds normal. No Wheezing. No rales Abdomen: Soft and nontender. No rigidity. No distention. Skin: Skin warm and dry. Normal skin color. Normal skin turgor. Extremities: No lower extremity edema. No Lacerations. No Rash Neuro: Oriented X 3. No motor deficit. No sensory deficit. Moving all extermities. No slurred speech. Course Course Course Narrative: Patient's hemoglobin is at baseline. We gave 2 L of normal saline, patient received IV Zofran and Phenergan. Patient was p.o. challenged and did not do well. Patient continues vomiting. Patient being admitted for hyperemesis gravidarum MDM - Nausea/Vomiting/Diarrhea Lab Data Result diagrams: 01/13/21 02:07 01/13/21 02:07 Labs: Lab Results 01/13/21 01/13/21 01/13/21 Range/Units 02:07 02:07 02:07 WBC 19.6 H (4.8-10.8) X10*3/uL RBC 3.95 L (4.20-5.50) X10*6/uL Hgb 11.5 L (12.0-16.0) g/dl Hct 35.3 L (37-47) % MCV 89.4 (80-98) fL MCH 29.1 (27.0-33.0) pg MCHC 32.6 (31.0-35.0) g/dl RDW 13.0 (11.0-16.0) % Plt Count 266 (160-400) X10*3/uL MPV 10.9 (9.4-12.3) fL Immature Gran % (Auto) 0.5 H (0.0-0.4) % Neut % (Auto) 88.1 H (45-73) % Lymph % (Auto) 7.1 L (20-40) % [place] % (Auto) 4.2 (2-11) % Eos % (Auto) 0.0 (0-4) % Baso % (Auto) 0.1 (0-2) % Lymph # (Auto) 1.4 (1.2-4.9) X10*3/uL [place] # (Auto) 0.8 (0.1-1.2) X10*3/uL Eos # (Auto) 0.0 (0.0-0.4) X10*3/uL Baso # (Auto) 0.0 (0.0-0.2) X10*3/uL Abs Immat Gran (auto) 0.10 H (0.00-0.03) X10*3/uL Absolute Neuts (auto) 17.2 H (2.0-8.3) X10*3/uL Absolute Nucleated RBC 0.000 (0.0-0.012) X10*3/uL Nucleated RBC % (auto) 0.0 (0.0-0.2) /100WBC Sodium 143 (135-145) mmol/L Potassium 3.9 (3.3-5.1) mmol/L Chloride 102 (96-108) mmol/L Carbon Dioxide 27 (22-29) mmol/L Anion Gap 18 (12-20) BUN 6 L (9-16) mg/dL Creatinine 0.65 (0.5-1.4) mg/dL Estim Creat Clear Calc 123.9 Estimated GFR > 60 Random Glucose 132 H D (60-115) mg/dL Calcium 9.8 D (8.4-10.2) mg/dL Total Bilirubin 1.0 (0.0-1.0) mg/dL Direct Bilirubin 0.3 (0.0-0.5) mg/dL AST 14 (5-31) U/L ALT 9 (0-31) U/L Alkaline Phosphatase 93 (39-117) U/L Total Protein 6.9 (6.5-8.0) g/dL Albumin 3.5 (3.5-5.0) g/dL Lipase 163 H (8-78) U/L Gastric Occult Blood POS H (NEG) Discharge Plan Discharge Clinical Impression: Hyperemesis Patient Disposition: Admitted As Inpatient Prescriptions: No Action ondansetron 4 mg tablet,disintegrating 4 mg PO Q6-8H PRN (Reason: Nausea And Vomiting) Qty: 20 RF: 0 promethazine 25 mg tablet 25 mg PO TID PRN (Reason: nausea and vomiting) Qty: 20 RF: 0 cimetidine 800 mg tablet 800 mg PO BID Qty: 60 RF: 0 promethazine 25 mg suppository 25 mg IA Q6H PRN (Reason: nausea and vomiting) Qty: 24 RF: 0 ondansetron HCl [Zofran] 4 mg tablet 4 mg PO Q8H PRN (Reason: nausea and vomiting) Qty: 30 RF: 0
[2021-01-13 02:54] LABS: Alanine Aminotransferase 9 U/L (0-31); Albumin Level 3.5 g/dL (3.5-5.0); Alkaline Phosphatase 93 U/L (39-117); Anion Gap 18 (12-20); Aspartate Amino Transferase 14 U/L (5-31); Bilirubin Direct 0.3 mg/dL (0.0-0.5); Blood Urea Nitrogen 6 mg/dL (9-16); Calcium 9.8 mg/dL (8.4-10.2); Carbon Dioxide 27 mmol/L (22-29); Chloride 102 mmol/L (96-108); Creatinine Clr Calc Pharmacy 123.9; Estimated Glomerular Filt Rate > 60; Glucose Random 132 mg/dL (60-115); Lipase 163 U/L (8-78); Potassium 3.9 mmol/L (3.3-5.1); Sodium 143 mmol/L (135-145); Total Protein 6.9 g/dL (6.5-8.0)
[2021-01-13] MEDS: Lidocaine HCl Viscous 2 % 15 ML SOLUTION MUCOUS MEM (03:12)
[2021-01-13] MEDS: Calcium Carbonate 750 MG TAB.CHEW 1500 MG PO (03:13)
--- NOTE | 2021-01-13 04:38 | PC.NURSE ---
PT EXPERIENCED DECREASED NAUSEA AND VOMITING AFTER PROMETHAZINE. PT ABLE TO TOLERATE TUMS AND SMALL SIPS OF WATER. PT WAS NOT ABLE TO TOLERATE THE LIDOCAINE P.O.
[2021-01-13 04:42] VITALS: BP 138/68; PULSE 86; O2SAT 98
--- NOTE | 2021-01-13 04:42 | PC.NURSE ---
PT TAKING SMALL SIPS OF ICE WATER, ABLE TO TOLERATE. PT FEELS BETTER OVERALL WHEN ASKED ABOUT HER NAUSEA.
[2021-01-13] MEDS: ondansetron HCL 4 MG/2 ML VIAL IVPUSH (06:05)
[2021-01-13 06:29] LABS: COVID-19 Test Negative (Negative); IDNOW Serial# 9DD0AD1C
--- NOTE | 2021-01-13 08:06 | PC.NURSE ---
fht 144 regular and strong, pt w nad, skin wpd, no n/v
--- NOTE | 2021-01-13 08:09 | P.CONOB_ITS ---
OB Consult Note - HPI Data Service Date: 01/13/21 Requesting Physician: I was called at 08:[address] Moya from the emergency room regarding a patient at 29 weeks was admitted by Dr. 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 - Review of Systems Review of Systems ROS Unobtainable: All systems reviewed & are unremarkable except as noted in HPI and below OB PMFSH Past Medical History Medical History (Updated 01/13/21 @ 08:11 by Joe Milan MD) Hyperemesis No known health problems Social History Social History Alcohol intake: never Patient Tobacco Use Status: Never used Tobacco Advance Directives: No Advance Directives Information Provided: No Patient : Yes Meds Allergies Allergy/AdvReac Type Severity Reaction Status Date / Time metoclopramide [From Reglan] Allergy Anxiety Verified 01/13/21 01:47 Active Medications: Current Medications Generic Name Dose Route Start Last Admin Trade Name Freq PRN Reason Stop Dose Admin Pharmacy Consult 1 each 01/13/21 05:59 Consult Rx Perform Med Rec MISCELLANE ONCE PRN Consult order OB Consult Results Labs CBC & Chem 7: 01/13/21 02:07 01/13/21 02:07 Labs: Short CBC 01/13/21 Range/Units 02:07 WBC 19.6 H (4.8-10.8) X10*3/uL Hgb 11.5 L (12.0-16.0) g/dl Hct 35.3 L (37-47) % Plt Count 266 (160-400) X10*3/uL BMP 01/13/21 02:07 Sodium 143 Potassium 3.9 Chloride 102 Carbon Dioxide 27 BUN 6 L Creatinine 0.65 Calcium 9.8 D Liver Function 01/13/21 Range/Units 02:07 Total Bilirubin 1.0 (0.0-1.0) mg/dL Direct Bilirubin 0.3 (0.0-0.5) mg/dL AST 14 (5-31) U/L ALT 9 (0-31) U/L Alkaline Phosphatase 93 (39-117) U/L Albumin 3.5 (3.5-5.0) g/dL OB - CN: A/P Assessment and Plan (1) Nausea & vomiting: Status: Acute Assessment and Plan: Since the patient is 29 weeks, there is a risk of delivery and other complications , recommended no further delay and transfer the patient out to [facility] for further management. I was consulted on the phone on the patient, I did not see the patient nor RI examined her (2) : Status: Acute
--- NOTE | 2021-01-13 08:20 | PHA.MEDREC ---
Pharmacy Consult ? Medication Reconciliation Pharmacy has completed the medication reconciliation. There are no remarkable issues for provider's attention Shwetha Gandhi PharmD.
--- NOTE | 2021-01-13 08:29 | PC.NURSE ---
@[phone] DR LIRA REQUESTS CALL OUT TO [facility] PT TX LINE FOR THIS PT YOANNA ANSWERS, TAKES PT INFO AND SAYS SHE WILL CALL BACK WITH AN ELECTRONIC DIE MAKER MD ON THE LINE FOR DR LIRA SHORTLY
--- NOTE | 2021-01-13 08:51 | PC.NURSE ---
@ [phone] RETURN CALL FROM ROSE FROM [facility] PT TX LINE ROSE ASKS TO SPEAK WITH DR LIRA, DR LIRA TAKES OVER CALL RIGHT AWAY
[2021-01-13 09:12] VITALS: BP 124/72; PULSE 86; RESP 18; TEMP 36.7; O2SAT 98
[2021-01-13] MEDS: 0.9 % Sodium Chloride 1,000 ML 125 ML IVCONT (09:40)
[2021-01-13] MEDS: diphenhydrAMINE HCL 50 MG/ML VIAL 25 MG IVPUSH (09:40)
[2021-01-13 09:53] LABS: Glucose Urine UA NEG (NEG); Leukocyte Esterase Urine NEG (NEG); Nitrite Urine NEG (NEG); PH 8.5 (5.0-8.0); Specific Gravity - Urine 1.015 (1.005-1.025); UACC Culture Trigger NO; Urine Blood NEG (NEG); Urine Ketones >=80 MG/DL (NEG)
[2021-01-13 09:56] LABS: Appearance Urine HAZY; Color Urine YELLOW; Urine Protein 1+ MG/DL (NEG-TRACE)
--- NOTE | 2021-01-13 10:00 | PC.NURSE ---
@ 0948 CALL PLACED TO PT TX LINE TO FIND OUT ROOM ASSIGNMENT AND RN TO RN NUMBER ROSE ANSWERS AND CONFIRMS NO ROOM ASSIGNMENT NUMBER NEEDED TEMPLATE REPRODUCTION TECHNICIAN TO RN CALL NEEDED AND TO JUST SEND THIS PT TO [facility] THEY ARE EXPECTING THIS PT @ 0924 [facility] CALLED FOR TRANSPORT TO [facility] ON ALS W/FLUIDS RUNNING PER DR LIRA REQUEST
[2021-01-13 10:02] LABS: Bacteria Urine TRACE /LPF; RBC Urine 0 /HPF (0); Squamous Epithelial Cell Urine 2+ /LPF; WBC Urine 0-2 /HPF (0-4)
[2021-01-13 10:03] LABS: Amorphous Sediment Urine 3+ /LPF
--- NOTE | 2021-01-13 10:05 | PC.NURSE ---
Pt aware of plan to tx to [facility]
[2021-01-13 10:20] LABS: Amphetamine Screen Urine Not Detected (Not Detect); Barbiturates, Urine Not Detected (Not Detect); Benzodiazepines Screen Urine Not Detected (Not Detect); Cannabinoid Screen Urine POSITIVE (Not Detect); Cocaine Screen Urine Not Detected (Not Detect); Fentanyl, urine Not Detected (Not Detect); Opiate Screen Urine Not Detected (Not Detect); Phencyclidine Screen Urine Not Detected (Not Detect)
== END 2021-01-13 10:25 | disposition short-term general hospital (02) ==
PROVIDERS: Emergency Provider Emergency Medicine
DX: O21.0 Mild hyperemesis gravidarum (principal); Z3A.29 29 weeks gestation of pregnancy
CPT/HCPCS: 36415; 80048; 80076; 80307; 81001; 82271; 83690; 85025; 87635; 96361; 96374; 96375; 99285; J1200; J2405; J2550

== ENCOUNTER 2021-02-14 23:07 | Emergency (ER) | payer MEDICAID, SELFPAY ==
[2021-02-14 23:58] VITALS: BP 124/91; PULSE 106; RESP 18; TEMP 36.2; O2SAT 97; BMI 39.7
--- NOTE | 2021-02-15 00:21 | ED.GENADULT ---
HPI - General Adult General Chief complaint: Nausea/Vomiting/Diarrhea <Javier Ortiz MD - Last Filed: 02/15/21 02:00> Stated complaint: can't stop vomiting, 33 weeks preg. <Javier Ortiz MD - Last Filed: 02/15/21 02:00> Time Seen by Provider: 02/15/21 00:11 <Javier Ortiz MD - Last Filed: 02/15/21 02:00> Source: patient <Javier Ortiz MD - Last Filed: 02/15/21 02:00> History of Present Illness HPI narrative: Patient with an apparent history of hyperemesis gravidarum presents with intractable vomiting. It started this afternoon for this episode. She states she has had several episodes throughout her that required visit to the emergency department. She typically takes Zofran daily in that usually controls the nausea. Today it did not seem to work which is similar to prior presentations. She does not know of any precipitating causes to make this episode worse. She denies abdominal pain. No diarrhea. She still feels the baby moving. No recent fevers or chills. She does have a history of occasional hematemesis but has never been anemic. <Javier Ortiz MD - Last Filed: 02/15/21 02:00> Related Data Home medications: Previous Rx's Medication Instructions Recorded ondansetron 4 mg disintegrating 4 mg PO Q6-8H PRN #20 tab 12/11/20 tablet cimetidine 800 mg tablet 800 mg PO BID #60 tab 12/21/20 promethazine 25 mg rectal 25 mg MA Q6H PRN #24 supp 12/21/20 suppository promethazine 25 mg tablet 25 mg PO TID PRN #20 tab 12/31/20 ondansetron HCl 4 mg tablet 4 mg PO Q8H PRN #30 tab 01/06/21 (Zofran) ondansetron 4 mg disintegrating 4 mg PO Q6-8H PRN #20 tab 02/15/21 tablet promethazine 25 mg rectal 25 mg MA Q6H PRN #24 ea 02/15/21 suppository (Promethegan) <Javier Ortiz MD - Last Filed: 02/15/21 02:00> Allergies/adverse reactions: Allergies Allergy/AdvReac Type Severity Reaction Status Date / Time metoclopramide [From Reglan] Allergy Anxiety Verified 01/13/21 01:47 <Javier Ortiz MD - Last Filed: 02/15/21 02:00> Review of Systems Constitutional: Constitutional: Denies fever(s) <Javier Ortiz MD - Last Filed: 02/15/21 02:00> Cardiovascular: Comments: No chest pain <Javier Otriz MD - Last Filed: 02/15/21 02:00> Respiratory: Comments: No cough or dyspnea <Javier Ortiz MD - Last Filed: 02/15/21 02:00> Gastrointestinal: Comments: Positive nausea and vomiting. No diarrhea. No abdominal pain. <Javier Ortiz MD - Last Filed: 02/15/21 02:00> Genitourinary: Comments: No urinary symptoms. <Javier Ortiz MD - Last Filed: 02/15/21 02:00> [facility] Past Medical History Medical History: Medical History (Updated 02/15/21 @ 03:41 by Pierre Morrissey MD) Hyperemesis No known health problems <Javier Ortiz MD - Last Filed: 02/15/21 02:00> Social History Social History: Social History Alcohol intake: never Patient Tobacco Use Status: Never used Tobacco Advance Directives: No Advance Directives Information Provided: Yes Patient : Yes <Javier Ortiz MD - Last Filed: 02/15/21 02:00> Physical Exam Vital Signs: Vital Signs: Last Vital Signs Temp 97.1 F 02/14/21 23:58 Pulse 106 H 02/14/21 23:58 Resp 18 02/14/21 23:58 BP 124/91 H 02/14/21 23:58 Pulse Ox 97 02/14/21 23:58 Body Mass Index 39.7 <Javier Ortiz MD - Last Filed: 02/15/21 02:00> Vital Signs: Last Vital Signs Temp 97.1 F 02/14/21 23:58 Pulse 106 H 02/14/21 23:58 Resp 18 02/14/21 23:58 BP 124/91 H 02/14/21 23:58 Pulse Ox 97 02/14/21 23:58 Body Mass Index 39.7 <Pierre Morrissey MD - Last Filed: 02/15/21 03:43> Const: Other: Awake and alert in no significant distress <Javier Ortiz MD - Last Filed: 02/15/21 02:00> Resp: Other: Clear and equal bilaterally <Javier Ortiz MD - Last Filed: 02/15/21 02:00> Cardio: Other: Regular rate and rhythm without murmurs rubs or gallops <Javier Ortiz MD - Last Filed: 02/15/21 02:00> GI: Other: Nontender abdomen gravid consistent with dates of greater than 30 weeks. No uterine tenderness. <Javier Ortiz MD - Last Filed: 02/15/21 02:00> Skin: Other: Warm pink and dry <Javier Ortiz MD - Last Filed: 02/15/21 02:00> Neuro: Other: Awake and alert without neuro deficit <Javier Ortiz MD - Last Filed: 02/15/21 02:00> Course Course Course Narrative: Hyperemesis gravidarum. Gastroenteritis Dehydration Preeclampsia Blood pressure is 124/91. Diastolic is a little elevated. Will order HEELP labs and reassess blood pressure after treating her nausea and vomiting. IV D5 normal saline IV Zofran 1:47 a.m.. Patient is feeling better and able to tolerate some p.o. liquids here. She does have some heartburn so we will treat with Maalox and discharge home To a.m.. Patient nauseous again requesting Phenergan. Phenergan ordered IV and patient signed out pending re-evaluation <Javier Ortiz MD - Last Filed: 02/15/21 02:00> Hyperemesis gravidarum. Gastroenteritis Dehydration Preeclampsia Blood pressure is 124/91. Diastolic is a little elevated. Will order HEELP labs and reassess blood pressure after treating her nausea and vomiting. IV D5 normal saline IV Zofran 1:47 a.m.. Patient is feeling better and able to tolerate some p.o. liquids here. She does have some heartburn so we will treat with Maalox and discharge home To a.m.. Patient nauseous again requesting Phenergan. Phenergan ordered IV and patient signed out pending re-evaluation [id number]: I assumed care of this patient from my colleague, Dr. Ortiz at 2:00 a.m.. The patient did feel better after receiving the IV Phenergan, she was able to drink water without vomiting. The patient will be discharged home with a prescription for Phenergan suppositories 25 mg every 6-8 hours as needed for nausea and vomiting. She is advised to continue taking Zofran as well. I told the patient that if she continues to vomit or has any issues with her , she should go to [facility] since we cannot admit patients here and that she would need to be admitted for further treatment and to monitor the baby. Patient understood this discussion was discharged home. <Pierre Morrissey MD - Last Filed: 02/15/21 03:43> Medical Decision Making Lab Data Result diagrams: : 02/15/21 00:43 02/15/21 00:43 <Javier Ortiz MD - Last Filed: 02/15/21 02:00> Labs: Lab Results 02/15/21 02/15/21 Range/Units 00:43 00:43 WBC 22.2 H (4.8-10.8) X10*3/uL RBC 4.09 L (4.20-5.50) X10*6/uL Hgb 12.0 (12.0-16.0) g/dl Hct 35.6 L (37-47) % MCV 87.0 (80-98) fL MCH 29.3 (27.0-33.0) pg MCHC 33.7 (31.0-35.0) g/dl RDW 13.2 (11.0-16.0) % Plt Count 241 (160-400) X10*3/uL MPV 11.2 (9.4-12.3) fL Immature Gran % (Auto) 0.6 H (0.0-0.4) % Neut % (Auto) 88.4 H (45-73) % Lymph % (Auto) 7.2 L (20-40) % Carlton % (Auto) 3.6 (2-11) % Eos % (Auto) 0.0 (0-4) % Baso % (Auto) 0.2 (0-2) % Lymph # (Auto) 1.6 (1.2-4.9) X10*3/uL Carlton # (Auto) 0.8 (0.1-1.2) X10*3/uL Eos # (Auto) 0.0 (0.0-0.4) X10*3/uL Baso # (Auto) 0.0 (0.0-0.2) X10*3/uL Abs Immat Gran (auto) 0.13 H (0.00-0.03) X10*3/uL Absolute Neuts (auto) 19.7 H (2.0-8.3) X10*3/uL Absolute Nucleated RBC 0.000 (0.0-0.012) X10*3/uL Nucleated RBC % (auto) 0.0 (0.0-0.2) /100WBC Sodium 138 (135-145) mmol/L Potassium 3.9 (3.3-5.1) mmol/L Chloride 102 (96-108) mmol/L Carbon Dioxide 23 (22-29) mmol/L Anion Gap 17 (12-20) BUN 7 L (9-16) mg/dL Creatinine 0.69 (0.5-1.4) mg/dL Estim Creat Clear Calc 119.2 Estimated GFR > 60 Random Glucose 165 H (60-115) mg/dL Calcium 8.9 D (8.4-10.2) mg/dL Total Bilirubin 0.9 (0.0-1.0) mg/dL Direct Bilirubin 0.3 (0.0-0.5) mg/dL AST 12 (5-31) U/L ALT 9 (0-31) U/L Alkaline Phosphatase 132 H D (39-117) U/L Total Protein 7.1 (6.5-8.0) g/dL Albumin 3.5 (3.5-5.0) g/dL Lipase 471 H (8-78) U/L <Javier Ortiz MD - Last Filed: 02/15/21 02:00> Lab Results 02/15/21 02/15/21 Range/Units 00:43 00:43 WBC 22.2 H (4.8-10.8) X10*3/uL RBC 4.09 L (4.20-5.50) X10*6/uL Hgb 12.0 (12.0-16.0) g/dl Hct 35.6 L (37-47) % MCV 87.0 (80-98) fL MCH 29.3 (27.0-33.0) pg MCHC 33.7 (31.0-35.0) g/dl RDW 13.2 (11.0-16.0) % Plt Count 241 (160-400) X10*3/uL MPV 11.2 (9.4-12.3) fL Immature Gran % (Auto) 0.6 H (0.0-0.4) % Neut % (Auto) 88.4 H (45-73) % Lymph % (Auto) 7.2 L (20-40) % Carlton % (Auto) 3.6 (2-11) % Eos % (Auto) 0.0 (0-4) % Baso % (Auto) 0.2 (0-2) % Lymph # (Auto) 1.6 (1.2-4.9) X10*3/uL Carlton # (Auto) 0.8 (0.1-1.2) X10*3/uL Eos # (Auto) 0.0 (0.0-0.4) X10*3/uL Baso # (Auto) 0.0 (0.0-0.2) X10*3/uL Abs Immat Gran (auto) 0.13 H (0.00-0.03) X10*3/uL Absolute Neuts (auto) 19.7 H (2.0-8.3) X10*3/uL Absolute Nucleated RBC 0.000 (0.0-0.012) X10*3/uL Nucleated RBC % (auto) 0.0 (0.0-0.2) /100WBC Sodium 138 (135-145) mmol/L Potassium 3.9 (3.3-5.1) mmol/L Chloride 102 (96-108) mmol/L Carbon Dioxide 23 (22-29) mmol/L Anion Gap 17 (12-20) BUN 7 L (9-16) mg/dL Creatinine 0.69 (0.5-1.4) mg/dL Estim Creat Clear Calc 119.2 Estimated GFR > 60 Random Glucose 165 H (60-115) mg/dL Calcium 8.9 D (8.4-10.2) mg/dL Total Bilirubin 0.9 (0.0-1.0) mg/dL Direct Bilirubin 0.3 (0.0-0.5) mg/dL AST 12 (5-31) U/L ALT 9 (0-31) U/L Alkaline Phosphatase 132 H D (39-117) U/L Total Protein 7.1 (6.5-8.0) g/dL Albumin 3.5 (3.5-5.0) g/dL Lipase 471 H (8-78) U/L <Pierre Morrissey MD - Last Filed: 02/15/21 03:43> Discharge Plan Discharge Clinical Impression: Hyperemesis Qualifiers: Weeks of gestation: 33 weeks Qualified Code(s): Z3A.33 - 33 weeks gestation of <Javier Ortiz MD - Last Filed: 02/15/21 02:00> Patient Disposition: Home, Self-Care <Javier Ortiz MD - Last Filed: 02/15/21 02:00> Instructions: (ED), Hyperemesis Gravidarum (ED) <Javier Ortiz MD - Last Filed: 02/15/21 02:00> Additional Instructions: I prescribed Phenergan suppositories 25 mg, you can use 1 suppository per rectum every 6-8 hours as needed for nausea and vomiting. You can continue to use the Zofran oral dissolvable tablets as well. If you continued to vomit or have any issues with the , you should go to [facility] since your are in your 3rd trimester and for any issues you would need to be admitted and monitored. We do not admit patients here to this facility. <Javier Ortiz MD - Last Filed: 02/15/21 02:00> Prescriptions: New promethazine [Promethegan] 25 mg suppository 25 mg MA Q6H PRN (Reason: nausea and vomiting) Qty: 24 RF: 0 ondansetron 4 mg tablet,disintegrating 4 mg PO Q6-8H PRN (Reason: nausea and vomiting) Qty: 20 RF: 0 No Action ondansetron 4 mg tablet,disintegrating 4 mg PO Q6-8H PRN (Reason: Nausea And Vomiting) Qty: 20 RF: 0 promethazine 25 mg tablet 25 mg PO TID PRN (Reason: nausea and vomiting) Qty: 20 RF: 0 cimetidine 800 mg tablet 800 mg PO BID Qty: 60 RF: 0 promethazine 25 mg suppository 25 mg MA Q6H PRN (Reason: nausea and vomiting) Qty: 24 RF: 0 ondansetron HCl [Zofran] 4 mg tablet 4 mg PO Q8H PRN (Reason: nausea and vomiting) Qty: 30 RF: 0 <Javier Ortiz MD - Last Filed: 02/15/21 02:00>
[2021-02-15 00:49] LABS: MANUAL DIFF FLAG NO
[2021-02-15 00:51] LABS: Basophils Percent Auto 0.2 % (0-2); Hematocrit 35.6 % (37-47); Imm Gran Abs Auto 0.13 X10*3/uL (0.00-0.03); Imm Gran Pct Auto 0.6 % (0.0-0.4); Lymphocytes Absolute Auto 1.6 X10*3/uL (1.2-4.9); Lymphocytes Percent Auto 7.2 % (20-40); Mean Corpuscular HGB Conc 33.7 g/dl (31.0-35.0); Mean Corpuscular Hemoglobin 29.3 pg (27.0-33.0); Mean Platelet Volume 11.2 fL (9.4-12.3); Monocytes Absolute Auto 0.8 X10*3/uL (0.1-1.2); Monocytes Percent Auto 3.6 % (2-11); Neutrophils Absolute Auto 19.7 X10*3/uL (2.0-8.3); Neutrophils Percent Auto 88.4 % (45-73); Platelet Count 241 X10*3/uL (160-400); Red Blood Count 4.09 X10*6/uL (4.20-5.50); Red Cell Distribution Width 13.2 % (11.0-16.0); White Blood Count 22.2 X10*3/uL (4.8-10.8)
[2021-02-15] MEDS: ondansetron HCL 4 MG/2 ML VIAL IVPUSH ×2 (00:54→00:55)
[2021-02-15] MEDS: Dextrose 5 % and 0.9 % NaCl 1,000 ML 1000 ML IVCONT (00:54)
[2021-02-15 01:06] LABS: Alanine Aminotransferase 9 U/L (0-31); Albumin Level 3.5 g/dL (3.5-5.0); Alkaline Phosphatase 132 U/L (39-117); Anion Gap 17 (12-20); Aspartate Amino Transferase 12 U/L (5-31); Bilirubin Direct 0.3 mg/dL (0.0-0.5); Bilirubin Total 0.9 mg/dL (0.0-1.0); Blood Urea Nitrogen 7 mg/dL (9-16); Calcium 8.9 mg/dL (8.4-10.2); Carbon Dioxide 23 mmol/L (22-29); Chloride 102 mmol/L (96-108); Creatinine Clr Calc Pharmacy 119.2; Estimated Glomerular Filt Rate > 60; Glucose Random 165 mg/dL (60-115); Lipase 471 U/L (8-78); Potassium 3.9 mmol/L (3.3-5.1); Sodium 138 mmol/L (135-145); Total Protein 7.1 g/dL (6.5-8.0)
== END 2021-02-15 03:49 | disposition home or self-care (01) ==
PROVIDERS: Emergency Medicine; Emergency Provider Emergency Medicine Emergency Medical Services
DX: O21.0 Mild hyperemesis gravidarum (principal); Z3A.33 33 weeks gestation of pregnancy; Z79.899 Other long term (current) drug therapy
CPT/HCPCS: 36415; 80048; 80076; 83690; 85025; 96361; 96374; 96375; 96376; 99283; 99284; J2405; J2550

== ENCOUNTER 2024-03-01 14:04 | Outpatient (REF) | payer OTHER, SELFPAY | END 2024-03-01 14:05 | disposition home or self-care (01) | LOC: HO.LAB 14:04 | PROVIDERS: PCP Internal Medicine; Visit Provider Internal Medicine | DX: Z13.89 Encounter for screening for other disorder (principal) ==